=== PATIENT | female | born 2000 | race Caucasian/White ===

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

== ENCOUNTER 2023-10-30 01:45 | Emergency (ER) | payer OTHER, SELFPAY ==
[2023-10-30 01:46] VITALS: BP 128/76; PULSE 71; RESP 12; TEMP 36.3; O2SAT 99; BMI 23.8
--- NOTE | 2023-10-30 02:42 | EDS_ITS ---
HPI History of Present Illness Chief Complaint: Nosebleed Informant: patient and spouse/S.O. Narrative Narrative: Patient is a 23-year-old female with no significant past medical history. She states throughout the winter months she will occasionally get nosebleeds. She denies any history of bleeding disorder or blood thinner use. She denies any recent trauma. She states she has had multiple recurrent nosebleeds out of the right nostril today and secondary to this comes in for evaluation [facility] Medical History (Updated 10/30/23 @ 02:[address] Parker Cervantes DO) Physical exam, pre-employment Allergy/AdvReac Type Severity Reaction Status Date / Time No Known Allergies Allergy Verified 10/30/23 01:46 Social History Smoking Status: Never smoker ROS ROS ED Constitutional Constitutional ED: Denies chills or fever(s) Eyes Eyes: Denies change in vision ENT ENT ED: Reports other Details: Positive nosebleed ; Denies sore throat Cardiovascular Cardiovascular: Denies chest pain, palpitations or racing heartbeat Respiratory/Chest Respiratory/Chest: Denies cough or dyspnea Gastrointestinal Gastrointestinal: Denies abdominal pain, diarrhea, nausea or vomiting Genitourinary Genitourinary ED: Denies dysuria Musculoskeletal Musculoskeletal: Denies myalgias Integumentary Denies rash Neurologic Neurologic: Denies headache(s) Hematologic/Lymphatic Hematologic/Lymphatic: Denies easy bleeding or easy bruising EXAM Physical Exam Const Vital Signs: 10/30/23 01:46 10/30/23 03:03 Temperature 97.4 F L 97.5 F L Temperature Source Temporal Pulse Rate 71 60 Respiratory Rate 12 14 Blood Pressure 128/76 H 124/79 H Blood Pressure Mean 93 94 Pulse Ox 99 100 Oxygen Delivery Method Room Air Positive well nourished and well developed General Appearance ED: well developed; Negative for pallor HEENT HEENT Narrative: Patient's exam shows a dry friable right sided nasal septum without active bleeding. There is scant amount of dried blood present on the right. Posterior pharynx exam reveals no tongue or lip swelling no airway edema or compromise or dried blood or active bleeding. Eyes PERRL and EOMs intact bilaterally General Eye ED: Negative for pale conjunctiva or scleral icterus Neck supple Resp normal respiratory effort and clear to auscultation bilaterally Cardio regular rate and regular rhythm Extremity normal to inspection Neuro oriented x3, CN's II-XII intact bilaterally and no sensory deficits noted Sensorium / Orientation: alert Motor Exam: strength 5/5 throughout Psych mental status grossly normal Skin no rashes or lesions noted General Skin Exam: Negative for jaundice or pallor MDM MDM MDM Narrative Medical decision making narrative: Patient presented to the ER with stable vitals and reported intermittent bleeding from her right nostril throughout the day. She denied any sick symptoms and therefore concern for COVID versus influenza versus RSV is low. She also denies any history of bleeding disorder or need for blood thinners so concern for thrombocytopenia or hemophilia is low as well. At this time she has had spontaneous resolution of her bleeding there is no signs of active bleeding or airway compromise. Her exam indicates is most likely due to a dried friable septum. Therefore she will be instructed on symptomatic care and is otherwise safe for discharge History & Record Review Discussion w/independent historian: Patient and Significant other Discharge Plan Triage Chief Complaint: Nosebleed ED Provider: Parker Cervantes Dx/Rx/DC Orders Clinical Impression: Anterior epistaxis Instructions: ED Epistaxis (Adult) Primary Care Provider: AIMEE JONES Referrals: Edmond Andino MD [[facility] Staff - Active Staff] - Care Physician,No Primary [Non-Staff] - Activity Restrictions/Additional Instructions: Please use [place] nasal spray 3 times a day and then place Vaseline inside your nose at nighttime to prevent drying out of your nasal septum and recurrent nosebleeds. If your nose does rebleed and need to hold constant pressure for 20 minutes and if bleeding is still reoccurring then you need to return to the hospital for evaluation Disposition Disposition: Home, Self Care Discharge Date/Time: 10/30/23 03:04
--- OUTSIDE RECORDS SUMMARY | 2023-10-30 02:44 | XMS RPT_ITS | CCD ---
Author Name Unknown Address [facility] [address] [place] [id number] Organization [facility] Care Team Providers Care Shank Burnisher Name Role Phone ROLAND PEREZ Referring Unavailable ROLAND PEREZ Primary Care Unavailable JULIO COTO Attending Unavailable ROLAND PEREZ Primary Care Unavailable HISTORICAL, PROVIDER Attending Unavailable [facility]IN[facility] Referring Un available ROLAND PEREZ Primary Care Unavailable JULIO COTO Attending Unavailable ROLAND PEREZ Primary Care Unavailable JULIO COTO Attending Unavailable ROLAND PEREZ Primary Care Unavailable JULIO COTO Referring Unavailable Encounters Encounter Date Encounter Type Care Provider Facility Start: 10-14-2018 End: 10-15-2018 Patient encounter procedure ROLAND Sameer [facility] Start: 09-29-2018 End: 09-29-2018 Patient encounter procedure [facility] Start: 02-28-2018 Patient encounter procedure ROLAND Sameer [facility] Start: 12-31-2017 Patient encounter procedure ROLAND Sameer [facility] Plan of Treatment Date Care Activity Detail Author Start: 09-14-2019 Patient encounter procedure Ambulato [facility] Payers Date Payer Category Payer Private Health Insurance [id number] 1971 Unknown [id number] 2.. [id number] 1971 Unknown [id number] 2.. [id number] 1971 Unknown [id number] 2.. [id number] 1971 Unknown [id number] 2.. [id number] 1971 Unknown [id number] Summary Purpose Family History No Family History Records Found Advance Directives No Advanced Directives Records Found Additional Source Comments INFORMATION SOURCE (unrecogn ized section and content) FOR RECORDS PERTAINING TO PATIENTS WHO ARE OR HAVE BEEN ENROLLED IN A CHEMICAL DEPENDENCY/SUBSTANCEABUSE PROGRAM, SOME INFORMATION MAY BE OMITTED. This clinical summary was aggregated from multiple sources. Caution should be exercised in using it in the provision of clinical care. This summary normalizes information from multiple sources, and as a consequence, information in this document may materially change the coding, format and clinical context of patient data. In addition, data may be omitted in some cases. CLINICAL DECISIONS SHOULD BE BASED ON THE PRIMARY CLINICAL RECORDS. [facility] [employer] [facility]. provides no warranty or guarantee of the accuracy or completeness of information in this document.
[2023-10-30 03:03] VITALS: BP 124/79; PULSE 60; RESP 14; TEMP 36.4; O2SAT 100
== END 2023-10-30 03:04 | disposition home or self-care (01) ==
PROVIDERS: Emergency Provider Emergency Medicine; Visit Provider Emergency Medicine
DX: R04.0 Epistaxis (principal)
CPT/HCPCS: 99283